=== PATIENT | female | born 1990 | race African-American/Black ===

== ENCOUNTER 2018-02-10 16:39 | Emergency (ER) | payer SELFPAY ==
[2018-02-10 16:59] LABS: Bilirubin Small (Negative); Blood, Urine Small (Negative); Clarity Slightly Cloudy (Clear); Glucose, Urine (Dipstick) Negative (Negative); Leukocyte Small (Negative); Nitrite Negative (Negative); Protein, Urine (Dipstick) Trace mg/dL (Neg-Trace)
[2018-02-10 17:02] LABS: Bacteria/HPF 1+ HPF (None Seen); Squamous Epithelial 0-3 HPF (0-3); Trichomonas/HPF 2+ HPF (None Seen)
[2018-02-10 17:06] LABS: Pregu Control Background? CLEAR/WHITE (CLR/WHITE); Pregu Control Bar Appear? YES (CONTROL BAR)
[2018-02-10 17:08] LABS: Pregnancy Test - Urine (BHCG) Negative (Negative)
[2018-02-10] MEDS ORDERED: Acetaminophen 325 MG TAB ONE (17:47)
[2018-02-10] MEDS ORDERED: Cyclobenzaprine 10 MG TAB ONE (17:47)
== END 2018-02-10 17:53 | disposition home or self-care (01) ==
LOC: SCSER 16:39
DX: M54.5 Low back pain (principal); A59.01 Trichomonal vulvovaginitis
CPT/HCPCS: 81003; 81015; 81025; 99283

== ENCOUNTER 2019-04-02 11:22 | Emergency (ER) | payer SELFPAY ==
[2019-04-02 12:17] LABS: #Lymphocytes 1.4 thou/uL (1.20-3.40); #Monocytes 0.3 thou/uL (0.11-0.59); #Neutrophils 3.4 thou/uL (1.40-6.50); %Eosinophils 0.3 % (0.0-10.0); %Lymphocytes 27.4 % (21.0-51.0); %Monocytes 5.7 % (0.0-10.0); %Neutrophils 66.7 % (42.0-75.0); Hemoglobin 12.4 g/dL (12.0-16.0); Mean Corpuscular Hemoglobin 32.5 pg (27.0-31.0); Mean Corpuscular Volume 98.4 fL (78.0-98.0); Mean Platelet Volume 7.7 fL (7.4-10.4); Platelet Count 216 thou/uL (130-400); RBC Distribution Width 11.2 % (11.5-14.5); Red Blood Cell (RBC) Count 3.82 mill/uL (4.20-5.40); White Blood Cell (WBC) Count 5.1 thou/uL (4.8-10.8)
--- NOTE | 2019-04-02 13:03 | RAD ---
FRONTAL RADIOGRAPH CHEST: 04/02/2019 HISTORY: Chest tightness and left arm tightness. COMPARISON: None. FINDINGS: There is prominent focal thoracic spine dextroscoliosis. No pneumothorax, pleural fluid, focal consol idation or alveolar edema. IMPRESSION: Thoracic spine dextroscoliosis. No radiographic evidence of acute cardiopulmonary disease. POS: [facility]
[2019-04-02 13:04] LABS: ALT (SGPT) 8 U/L (8-55); AST (SGOT) 13 U/L (5-34); Alkaline Phosphatase 46 U/L (40-110); Anion Gap 14 mmol/L (10-20); BUN (Urea Nitrogen) 8 mg/dL (7.0-18.7); Bilirubin, Total 0.6 mg/dL (0.2-1.2); CK (CPK) 191 U/L (29-168); Calc. Creatinine Clearance 0 mL/min (70-130); Carbon Dioxide 23 mmol/L (22-29); Chloride 107 mmol/L (98-107); Estimated GFR-MDRD Greater than 90; Globulin 3.3 g/dL (2.4-3.5); Glucose 88 mg/dL (70-105); Potassium 3.8 mmol/L (3.5-5.1); Protein, Total 7.3 g/dL (6.0-8.3); Sodium 140 mmol/L (136-145)
== END 2019-04-02 14:10 | disposition home or self-care (01) ==
LOC: ERS 11:22
DX: R07.89 Other chest pain (principal); F41.9 Anxiety disorder, unspecified; Z79.899 Other long term (current) drug therapy
CPT/HCPCS: 36415; 71045; 80053; 82550; 84484; 85025; 93005

== ENCOUNTER 2021-07-13 13:34 | Outpatient (CLI) | payer BC | END 2021-07-13 13:35 | disposition home or self-care (01) | LOC: DTY/OP 13:34 | PROVIDERS: ATTEND Surgery | DX: E66.01 Morbid (severe) obesity due to excess calories (principal) | CPT/HCPCS: 97802 ==

== ENCOUNTER 2021-10-04 12:30 | Emergency (ER) | payer BC | END 2021-10-04 14:40 | disposition home or self-care (01) | LOC: ERS 12:30 | DX: S93.401A Sprain of unspecified ligament of right ankle, initial encounter (principal); S63.612A Unspecified sprain of right middle finger, initial encounter; I10 Essential (primary) hypertension; V68.6XXA Passenger in heavy transport vehicle injured in noncollision transport accident in traffic accident, initial encounter ==

== ENCOUNTER → 2021-10-11 | Day surgery (SDC) | payer BC ==
[~2021-10-11] MED LIST: Ondansetron PF 4 MG/2 ML Vial IVP PRN; SODIUM CHLORIDE IVPB SCH; Sodium Chloride 0.9% 1,000 ML IV SCH; THIAMINE HCL IVPB SCH; TRACE ELEMENT IVPB SCH; Thiamine HCl 100 MG, Multivitamins, Adult 10 ML in Sodium Chloride 0.9% 1,000 ML IVPB SCH
[2021-10-11 14:20] VITALS: BP 130/75; TEMP 98.5
== END | disposition home or self-care (01) ==
LOC: ONC/OP 12:54
PROVIDERS: ATTEND Surgery
DX: E86.0 Dehydration (principal)
CPT/HCPCS: 96361; 96365; 96366; J3411; J7050

== ENCOUNTER 2021-10-25 17:34 | Emergency (ER) | payer BC ==
[~2021-10-25 17:34] MED LIST changes: +GASTROGRAFIN 30 ML BOT ONE; +Iopamidol-370 76% 500 ML 1 ML ONE; -Ondansetron PF 4 MG/2 ML Vial IVP PRN; -SODIUM CHLORIDE IVPB SCH; -Sodium Chloride 0.9% 1,000 ML IV SCH; -THIAMINE HCL IVPB SCH; -TRACE ELEMENT IVPB SCH; -Thiamine HCl 100 MG, Multivitamins, Adult 10 ML in Sodium Chloride 0.9% 1,000 ML IVPB SCH
[2021-10-25 18:37] LABS: #Eosinphils 0.1 thou/uL (0.0-0.7); #Lymphocytes 1.6 thou/uL (1.20-3.40); #Monocytes 0.4 thou/uL (0.11-0.59); #Neutrophils 2.3 thou/uL (1.40-6.50); %Basophils 0.8 % (0.0-1.0); %Eosinophils 1.8 % (0.0-10.0); %Monocytes 9.6 % (0.0-10.0); %Neutrophils 50.7 % (42.0-75.0); Hemoglobin 12.3 g/dL (12.0-16.0); Mean Corpuscular HGB CONC 33.4 g/dL (32.0-36.0); Mean Corpuscular Hemoglobin 34.1 pg (27.0-31.0); Mean Platelet Volume 8.8 fL (7.4-10.4); Platelet Count 149 thou/uL (130-400); RBC Distribution Width 12.1 % (11.5-14.5); White Blood Cell (WBC) Count 4.4 thou/uL (4.8-10.8)
[2021-10-25 19:00] LABS: ALT (SGPT) 17 U/L (8-55); AST (SGOT) 19 U/L (5-34); Albumin 4.1 g/dL (3.5-5.0); Alkaline Phosphatase 39 U/L (40-110); Anion Gap 15 mmol/L (10-20); BUN (Urea Nitrogen) 14 mg/dL (7.0-18.7); Calc. Creatinine Clearance 0 mL/min (70-130); Calcium 9.4 mg/dL (7.8-10.44); Carbon Dioxide 25 mmol/L (22-29); Chloride 105 mmol/L (98-107); Globulin 3.6 g/dL (2.4-3.5); Glucose 88 mg/dL (70-105); Lipase 268 U/L (8-78); Potassium 3.9 mmol/L (3.5-5.1); Protein, Total 7.7 g/dL (6.0-8.3); Sodium 141 mmol/L (136-145)
[2021-10-25 19:24] LABS: BHCG - Serum Negative (NEGATIVE); Pregs Control Background? CLEAR/WHITE (CLR/WHITE); Pregs Control Bar Appear? YES (CONTROL BAR)
[2021-10-25] MEDS ORDERED: Morphine 4 MG/ML VIAL ONE (20:03)
[2021-10-25 20:12] LABS: Bacteria/HPF None Seen HPF (None Seen); Bilirubin 1+ (Negative); Blood, Urine 1+ (Negative); Clarity Clear (Clear); Glucose, Urine (Dipstick) Normal (Negative); Ketone, Urine Greater than 150 mg/dL (Negative); Leukocyte Negative Leu/uL (Negative); Mucous/LPF 1+ LPF (<2+); Nitrite Negative (Negative); Protein, Urine (Dipstick) 100 mg/dL (Neg-Trace); Specific Gravity, Urine 1.043 (1.002-1.036); WBC/HPF 0-3 HPF (0-3)
[2021-10-25] MEDS ORDERED: Ondansetron PF 4 MG/2 ML Vial ONE (20:25)
== END 2021-10-25 22:10 | disposition home or self-care (01) ==
LOC: ERS 17:34
DX: R11.2 Nausea with vomiting, unspecified (principal); R74.8 Abnormal levels of other serum enzymes; Z98.84 Bariatric surgery status; I10 Essential (primary) hypertension
CPT/HCPCS: 36415; 74177; 80053; 81003; 81015; 83690; 84703; 85025; 96361; 96374; J2270; J2405; Q9963; Q9967

== ENCOUNTER 2022-05-17 12:43 | Day surgery (SDC) | payer BC ==
[~2022-05-17 12:43] MED LIST changes: -GASTROGRAFIN 30 ML BOT ONE; -Iopamidol-370 76% 500 ML 1 ML ONE; +Multivitamins, Adult 10 ML, Thiamine HCl 100 MG in Sodium Chloride 0.9% 1,000 ML IV SCH; +Ondansetron PF 4 MG/2 ML Vial IVP PRN; +Sodium Chloride 0.9% 1,000 ML IV SCH
[2022-05-17 13:36] VITALS: BP 131/78; TEMP 97.7
== END 2022-05-17 16:33 | disposition home or self-care (01) ==
LOC: ONC/OP 12:43
PROVIDERS: ATTEND Surgery
DX: E86.0 Dehydration (principal)
CPT/HCPCS: 96365; 96366; J3411; J7050